=== PATIENT | female | born 2000 | race Hispanic/Latino ===

== ENCOUNTER 2024-12-16 19:12 | Inpatient (IN) | payer BC, SELFPAY ==
--- NOTE | 2024-12-02 17:15 | HP.PCM_ITS ---
History and Physical Date of Admission: 12/15/24 NAME: Anneliese Casanova SERVICE DATE: December 02, 2024 SERVICE TIME: 1440 ASSESSMENT & PLAN: 24 year old EGA:37w1d. Plan for delivery in <30 days. POST DELIVERY CONTRACEPTION: Discussed post-delivery contraception options. Patient received written information about post-delivery contraception options. SUBJECTIVE: CHIEF COMPLAINT: Scheduled Induction of labor for diabetes HISTORY OF THE PRESENT ILLNESS: The patient is a 24 year old female, , who is at 37w1d with an CRISTOBAL of 12/22/2024, by Ultrasound dating method. Patient has Good movement. Denies vaginal bleeding.. Patient is GBS Negative. Her has been complicated by the following issues: Active Non-Hospital Problems Diagnosis Date Noted ? Insulin controlled gestational diabetes mellitus (GDM) in third trimester 11/14/2024 Overview Note: November 14, 2024 - 10U NPH at bedtime prescribed by Dr. Molina. - Had nurse visit with development educator - Has growth ultrasound 11/21 - [place]: 88-95 - 1 hour PP:81-154 (only one abnormal) Peg Hess APRN.CNP Assessment & Plan Note: Orders: ? URINE OB DIP B/O ? ? Anemia complicating , third trimester 10/17/2024 Overview Note: November 17, 2024 11.1 at 35 weeks. Continue oral iron. Peg Hess APRN.CNP October 17, 2024 10.1 with 28 week labs. Oral iron initiated. Repeat in 4-6 weeks. Peg Hess APRN.CNP ? Heartburn during 08/07/2024 Overview Note: 08/07/24- Rx for Protonix 20 mg PO daily. Ellie Arnada APRN.CNM ? Atypical squamous cell changes of undetermined significance (ASCUS) on cervical cytology with positive high risk human papilloma virus (HPV) 07/11/2024 Overview Note: Colposcopy ordered. ? Language barrier 07/11/2024 Overview Note: 07/11/24 - Primary language is Welsh, but declines cleaning attendant today as she feels more comfortable with fiance helping her and does speak some Belarusian Peg Hess APRN.CNP ? Nausea and vomiting during prior to 22 weeks gestation 024 Overview Note: - Presented actively vomiting, after history of non-bloody N/V since yesterday at 5pm - Admits to minor generalized abdominal pain since yesterday - Currently already taking Unisom and B6 - Patient presented tachycardic to triage but remained stable for the remaining of her stay - Patient was given a liter of fluids and Reglan, with improvement and passed PO test - CBC, CMP, lipase, and urine were tested - The patient was discussed with Dr. Ng who agrees this patient to having an episode of routine nausea and vomiting related to her , based on labs and clinical presentation we have a low suspicion for pyelonephritis, pancreatitis, electrolyte abnormality, or cholecystitis - Based on the patients clinical presentation, labs, and improvement after fl uids and antinausea medication we felt comfortable for discharge. The patient was prescribed Reglan outpatient and the patient was in agreement with this management and disposition. ? Rubella non-immune status, antepartum 06/16/2024 ? Infection of urinary tract in in first trimester 05/14/2024 Overview Note: October 20, 2024 3rd trimester culture negative. Peg Hess, CLINICAL LABORATORY SERVICE TEACHER.HARVEST FIELD TICKETER ANESTHESIA COMPLICATIONS: None HISTORY REVIEW PAST MEDICAL HISTORY PAST MEDICAL HISTORY Diagnosis Date ? Anemia ? Atypical squamous cell changes of undetermined significance (ASCUS) on cer vical cytology with positive high risk human papilloma virus (HPV) 07/11/2024 ? Diet controlled gestational diabetes mellitus (GDM) in third trimester 11/14/2024 PAST SURGICAL HISTORY History reviewed. No pertinent surgical history. FAMILY HISTORY FAMILY HISTORY Problem Relation Age of Onset ? other (dengue fever) Mother ? No Known Problems Father ? No Known Problems Sister ? No Known Problems Sister ? No Known Problems Sister ? No Known Problems Brother ? No Known Problems Brother ? No Known Problems Brother ? No Known Problems Brother ? No Known Problems Brother ? No Known Problems Maternal Grandmother ? No Known Problems Maternal Grandfather ? No Known Problems Paternal Grandmother ? No Known Problems Paternal Grandfather SOCIAL HISTORY Social History Tobacco Use ? Smoking status: Never ? Smokeless tobacco: Never Vaping Use ? Vaping status: Never Used Substance Use Topics ? Alcohol use: Not Currently Comment: rarely ? Drug use: Never Obstetric History T0 L0 SAB0 IAB0 Ectopic0 Multiple0 Live Births0 Name of Baby 1: Not recorded Date: Not recorded GA: Not recorded Type: Not recorded Apgar1: Not recorded Apgar5: Not recorded Living: Not recorded ALLERGIES: ALLERGIES ALLERGIES No Known Allergies PRIOR TO ADMISSION MEDICATIONS: Prior to Admission medications as of 12/02/24 1427 Medication Sig Last Dose Taking insulin NPH subcutaneous pen Inject 10 Units subcutaneously daily at bedtime. Taking Yes Insulin [place], Disposable, (PEN NEEDLES) 31 gauge x 1/4 ndle 1 Pen Needle daily at bedtime. Taking Yes pantoprazole DR (PROTONIX) 20 mg tablet TAKE 1 TABLET BY MOUTH EVERY DAY Taking Yes blood sugar diagnostic test strip Use as directed to check glucose levels up to seven times daily. Taking Yes Lancets Use as directed to check glucose levels up to seven times daily. Taking Yes alcohol swabs (ALCOHOL PREP PADS) Use as directed to check glucose levels up to seven times daily. Taking Yes pyridoxine HCl, vitamin B6, (VITAMIN B-6 ORAL) Take by mouth. Taking Yes diphenhydramine HCl (UNISOM, DIPHENHYDRAMINE, ORAL) Take by mouth. Taking Yes metoclopramide HCl (REGLAN) 10 mg tablet Take 1 tablet by mouth three times a day. Taking Yes ferrous sulfate (IRON ORAL) Take by mouth. Taking Yes aspirin, enteric coated (ECOTRIN LOW STRENGTH) 81 mg EC tablet Take 1 tablet by mouth once daily. Taking Yes VIT 28-IRON FUM-FOLIC ORAL Take by mouth. Taking Yes No medication comments found. REVIEW OF SYSTEMS: PAIN ASSESSMENT: Negative for pain, history of chronic pain, or current treatment for a chronic pain condition. GENERAL: No weight loss, malaise or fevers., Negative for weakness, chills, night sweats, and weight loss. RESPIRATORY: Negative for cough, hemoptysis, wheezing, COPD, dyspnea or shortness of breath CARDIOVASCULAR: Negative for chest pain, leg swelling, hypertension, CHF or palpitations The remainder of the review of systems is negative. OBJECTIVE: SENSITIVE EXAM: Sensitive exam not performed. PHYSICAL EXAM: General: WD, WN HEENT: NC/AT, sclera white, pupils equal, no thyromegaly Lungs: clear, Heart: RR, S1, S2 Abdomen: soft, nontender, no masses Uterus: soft, NT Extremities: no edema DTRs: 2+ Pelvimetry: to be done at cervical exam next week LAST VITALS: BP 106/70 Wt 72.1 kg (159 lb) LMP 03/09/2024 (Approximate) BMI 31.05 kg/m? Heart Rate: 155 LABS Diagnostic tests reviewed for today's visit: Most recent labs and imaging results. Most recent labs Maternal Results (In Last 9 Months): Hemoglobin (g/dL) Date/Time Value 11/21/2024 1058 11.4 (L) 11/14/2024 1616 11.1 (L) 10/03/2024 1338 10.1 (L) Hematocrit (%) Date/Time Value 11/21/2024 1058 33.6 (L) 11/14/2024 1616 34.2 (L) 10/03/2024 1338 30.2 (L) Platelet Count (k/uL) Date/Time Value 11/21/2024 1058 284 11/14/2024 1616 282 10/03/2024 1338 277 ABO (no units) Date/Time Value 06/13/2024 1609 O Rh(D) (no units) Date/Time Value 06/13/2024 1609 Positive Group B Strep PCR (no units) Date/Time Value 11/21/2024 1050 Negative for Group B Streptococcus by PCR. HBsAg (no units) Date/Time Value 06/13/2024 1609 Negative Hep C Antibody IA (no units) Date/Time Value 06/13/2024 1609 Negative HIV 12 Combo (Ag/Ab) (no units) Date/Time Value 06/13/2024 1609 Nonreactive Neisseria gonorrhoeae RNA (no units) Date/Time Value 05/12/2024 1559 Negative for Neisseria gonorrhoeae by amplification Syphilis Treponemal Screen (no units) Date/Time Value 10/03/2024 1338 Nonreactive Glucose Scrn, Preg (mg/dL) Date/Time Value 10/03/2024 1338 160 (H) Delivery Plan: Induction Order completed and includes: Open Standing Orders None Induction Order Details None Written consent:Yes Assessment & Plan Assessment/Plan (1) Gestational diabetes requiring insulin: (2) High-risk in third trimester: (3) 39 weeks gestation of :
[2024-12-16 19:16] VITALS: BMI 31.5
[2024-12-16] MEDS: Lactated Ringers 1,000 ML 50 ML IV (19:40)
[2024-12-16 19:45] LABS: Absolute Lymphocyte Count 2.04 X10^3/uL (0.83-4.51); Absolute Neutrophil Count 7.2 X10^3/uL (2.0-7.7); Basophil# 0.04 X10^3/uL; Basophil% 0.4 % (0-1); Eosinophil# 0.07 X10^3/uL; Eosinophils% 0.7 % (0-5); Hematocrit 31.8 % (37-47); Hemoglobin 10.8 g/dL (12.0-15.0); Lymphocyte # 2.04 X10^3/ul (0.83-4.51); Lymphocyte % 20.1 % (19-41); Mean Corpuscular Hgb 31.4 pg (27.0-32.0); Mean Corpuscular Volume 92.4 fL (81-99); Mean Platelet Vol. 9.7 fl (6.2-12.0); Monocyte# 0.75 X10^3/uL; Monocyte% 7.4 % (0-10); NRBC Flagged by Analyzer 0 % (0-5); Neutrophil # 7.18 X10^3/uL (2.7-7.7); Neutrophil % 70.7 % (47-70); Platelet Count 263 K/mm3 (150-450); RBC Distribution Width CV 13.5 % (11.6-14.6); RBC Distribution Width SD 45.9 fl (35.1-43.9); Red Blood Count 3.44 M/mm3 (4.2-5.4); White Blood Count 10.2 K/mm3 (4.4-11.0)
[2024-12-16] MEDS: 0.9% Normal Saline Single 100 ML IV.SOLN. INTRA-UTER (19:58)
--- NOTE | 2024-12-16 20:00 | PCM.HP.OB ---
HPI - General General Date of Admission: 12/16/24 Date of Service: 12/16/24 HPI Narrative JAISON GRAY, is a 24 F who presents for induction. Maternal Data Information CRISTOBAL Calculator Estimated Delivery Date Method Current WG Current Estimate 12/22/24 Manual 39w 1d Vital Signs Vital Signs Vital Signs: Weight Weight: 161 lb 6.4 oz Body Mass Index (BMI) 31.5 Physical Exam Const alert and oriented x3 Resp normal respiratory effort GI soft to palpation, non-tender and non-distended Inspection: gravid external exam normal Narrative: cvx - 1.5/70/-2, intracervical cristobal placed Labs Labs Labs: Blood Type Pending Antibody Screen Pending Hct 31.8 % (37-47) L Hgb 10.8 g/dL (12.0-15.0) L Syphilis Total Ab Pending Assessment & Plan (1) Anemia affecting : QUALIFIERS: Trimester: third trimester Qualified Code(s): O99.013 - Anemia complicating , third trimester COMMENT: @ 39&1 (2) Gestational diabetes requiring insulin: (3) 39 weeks gestation of : PLAN: Plan Admit to L&D. Induction - intracervical cristobal placed. Will start pitocin. GDMA2 - check BS per protocol. EFW less than 4500g and patient with adequate pelvis. GBS negative. ROutine care.
[2024-12-16 20:04] VITALS: BP 116/72; PULSE 95
[2024-12-16 20:05] VITALS: PULSE 87; RESP 16; TEMP 37; O2SAT 96
[2024-12-16 20:36] LABS: Syphilis Antibodies Non-reactive
[2024-12-16 21:24] LABS: Bedside Glucose 95 mg/dL (74-106)
[2024-12-16 21:24] LABS: Bedside Glucose 92 mg/dL (74-106)
--- NOTE | 2024-12-16 21:40 | NURSING ---
Pt is from [place] and primary language is belarusian. RN offered an laundry worker. Pt declined as speaks Swedish and is able to translate. RN encouraged family and pt to request laundry worker as needed.
[2024-12-17] VITALS (66 sets, daily range): BP systolic 96–134; BP diastolic 52–86; PULSE 66–133; RESP 14–20; TEMP 36.4–37; O2SAT 97–100
[2024-12-17] MEDS: Oxytocin 15 Units/NS 250ml 15 UNITS/250 ML IV.SOLN 2 UNITS IV (00:10)
[2024-12-17 00:41] LABS: Bedside Glucose 93 mg/dL (74-106)
[2024-12-17 04:27] LABS: Bedside Glucose 94 mg/dL (74-106)
[2024-12-17] MEDS: Lactated Ringers 1,000 ML 999 ML IV (05:00)
[2024-12-17] MEDS: fentaNYL-bupivacaine (epidural) 100 ML BAG EPIDURAL (05:06)
[2024-12-17] MEDS: Ondansetron 4 MG/2 ML Vial IV (05:27)
[2024-12-17] MEDS: Lactated Ringers 1,000 ML 200 ML IV ×2 (06:37→11:40)
[2024-12-17 07:09] LABS: Bedside Glucose 86 mg/dL (74-106)
[2024-12-17 08:24] LABS: Bedside Glucose 84 mg/dL (74-106)
--- NOTE | 2024-12-17 09:01 | PCM.PN.OB ---
Subjective Subjective AROM for clear fluid. Objective Data Objective Data Vital Signs: Vital Signs Temp Pulse Resp BP Pulse Ox 97.9 F 90 16 114/69 98 12/17/24 07:19 12/17/24 07:19 12/17/24 07:19 12/17/24 07:19 12/17/24 07:08 Weight: 73.21 kg Body Mass Index (BMI) 31.5 Intake & Output: Intake and Output for Last 24 Hours 12/15/24 12/16/24 12/17/24 23:59 23:59 23:59 Intake Total 2028.64 / 202.64 Output Total 400 / 400 Balance 1628.64 / 1628.64 Lab / Micro Data 12/16/24 19:30 Labs: Laboratory Results - last 24 hr 12/16/24 19:30: WBC 10.2, RBC 3.44 L, Hgb 10.8 L, Hct 31.8 L, MCV 92.4, MCH 31.4, MCHC 34.0, RDW Std Deviation 45.9 H, RDW Coeff of Zoë 13.5, Plt Count 263, MPV 9.7, Immature Gran % (Auto) 0.700, Neut % (Auto) 70.7 H, Lymph % (Auto) 20.1, [place] % (Auto) 7.4, Eos % (Auto) 0.7, Baso % (Auto) 0.4, Absolute Neuts (auto) 7.2, Absolute Lymphs (auto) 2.04, Nucleated RBC % 0, Syphilis Total Ab Non-reactive, Blood Type O POSITIVE, Antibody Screen NEGATIVE 12/16/24 20:01: POC Glucose 92 12/16/24 21:01: POC Glucose 95 12/17/24 00:14: POC Glucose 93 12/17/24 04:06: POC Glucose 94 12/17/24 06:49: POC Glucose 86 12/17/24 08:05: POC Glucose 84 NST FHR Rate Baby A Baseline: 130 Variability:: Moderate Accelerations:: 15 x 15 Decelerations:: None NST Reactive:: Yes FHR Category:: Category I Uterine Activity:: q 2 Assessment & Plan (1) Gestational diabetes requiring insulin: (2) 39 weeks gestation of : (3) Anemia affecting : QUALIFIERS: Trimester: third trimester Qualified Code(s): O99.013 - Anemia complicating , third trimester COMMENT: @ 39&1
[2024-12-17 09:19] LABS: Bedside Glucose 89 mg/dL (74-106)
[2024-12-17 10:41] LABS: Bedside Glucose 78 mg/dL (74-106)
[2024-12-17 11:26] LABS: Bedside Glucose 81 mg/dL (74-106)
--- NOTE | 2024-12-17 13:35 | OB.VAGDELI_ITS ---
Assessment & Plan (1) (spontaneous vaginal delivery): Maternal Data Information CRISTOBAL Calculator Estimated Delivery Date Method Current WG Current Estimate 12/22/24 Manual 39w 2d Final CRISTOBAL: 12/22/24 Gestational age: 39+2 Vaginal Delivery Maternal Presentation Maternal Presentation: Medically Indicated Induction Maternal Presentation: Insulin controlled GDM Type of Induction: Pitocin and [place] Bul[place] Vaginal Delivery Information Procedure Performed: Spontaneous Vaginal Delivery Surgeon/Practitioner: Lauren Molina Date of Procedure: 12/17/24 Pre-Procedure Diagnosis: GDM A2 Post-Procedure Diagnosis: Type of anesthesia: Epidural Estimated Blood Loss: 150 cc Time of Delivery: 13:13 Findings Description of procedure: IOL for GDM A2. Patient progressed to complete at AROM at 6 cm with no increase in Pitocin. She pushed for approximated 1 hour. Delivered OA over an intact perineum Nuchal cord loose x 1. The anterior and posterior shoulders delivered easily with gentle traction. The cried upon delivery and was placed on the maternal abdomen. The cord was clamped and cut after 1 min. The placenta delivered with gentle traction. A second degree laceration was repaired with 2-0 vicryl. Presentation: Vertex and MELISSA Amniotic Membrane Rupture Type: Artificial Amniotic Fluid Description: Clear Placental Delivery Description: Spontaneous Placenta Disposition: [facility] Specimen collected: No Cord Vessel Description: 3 Vessels Cord Entanglement: Around neck x 1, loose Nuchal Cord Compression: Without compression A Gender: Female (1 minute): 7 (5 minute): 9 Delayed Cord Clamping: Yes Government Property Inspector tensile tester: No Post Vaginal Deli Medications given after delivery: IV Pitocin Episiotomy Description: None Laceration: Midline and 2nd degree Complication Complications: No
[2024-12-17] MEDS: Oxytocin 15 Units/NS 250ml 15 UNITS/250 ML IV.SOLN 83 UNITS IV (13:40)
[2024-12-17 14:20] LABS: Bedside Glucose 94 mg/dL (74-106)
[2024-12-17] MEDS: Acetaminophen 500 MG Tablet 1000 MG PO ×2 (14:21→22:47)
[2024-12-17] MEDS: Benzocaine/Lanolin/Aloe Vera 85 GM Spray 1 SPRAY TOPICAL (14:21)
[2024-12-17] MEDS: Ibuprofen 600 MG Tablet PO (16:58)
[2024-12-18 01:00] VITALS: BP 105/59; PULSE 83; RESP 16; TEMP 36.7; O2SAT 99
[2024-12-18 04:35] VITALS: BP 101/63; PULSE 80; RESP 16; TEMP 36.8; O2SAT 99
[2024-12-18 05:29] LABS: Bedside Glucose 90 mg/dL (74-106)
--- NOTE | 2024-12-18 06:24 | PCM.PN.OB ---
Subjective Subjective Doing well. Ambulating and voiding without difficulty. Mild lochia. Breast feeding. BG WNL Objective Data Objective Data Vital Signs: Vital Signs Temp Pulse Resp BP Pulse Ox O2 Del Method 98.3 F 80 16 101/63 99 Room Air 12/18/24 04:35 12/18/24 04:35 12/18/24 04:35 12/18/24 04:35 12/18/24 04:35 12/18/24 04:35 Oxygen Delivery Method Room Air Weight: 73.21 kg Body Mass Index (BMI) 31.5 Intake & Output: Intake and Output for Last 24 Hours 12/16/24 12/17/24 12/18/24 23:59 23:59 23:59 Intake Total 3278.64 / 3278.64 Output Total 2450 / 2450 Balance 828.64 / 828.64 Lab / Micro Data 12/16/24 19:30 Labs: Laboratory Results - last 24 hr 12/17/24 06:49: POC Glucose 86 12/17/24 08:05: POC Glucose 84 12/17/24 09:01: POC Glucose 89 12/17/24 10:10: POC Glucose 78 12/17/24 11:04: POC Glucose 81 12/17/24 14:00: POC Glucose 94 12/18/24 05:10: POC Glucose 90 ROS Constitutional Constitutional: Denies fatigue, fever(s) or malaise Eyes Eyes: Denies change in vision ENT HEENT: Denies dizziness or headache(s) Cardiovascular Cardiovascular: Denies chest pain, dyspnea or lightheadedness Respiratory/Chest Respiratory/Chest: Denies cough or dyspnea Gastrointestinal Gastrointestinal: Denies change in bowel habits Genitourinary Genitourinary: Denies burning urination or genital lesions Integumentary Integumentary: Denies rash Neurologic Neurologic: Denies confusion, dizziness, headache(s), numbness or weakness Physical Exam Const alert and no apparent distress Narrative: Fundus firm, below umbilicus. Assessment & Plan (1) (spontaneous vaginal delivery): PLAN: Plan Discharge home this afternoon
--- NOTE | 2024-12-18 06:25 | PCM.DC.SUM ---
Providers Date of Admission: 12/16/24 Date of Discharge: 12/18/24 Primary Care Physician: No Primary Care Phys Reason For Visit: VAGINAL Diagnosis Discharge Diagnosis (1) (spontaneous vaginal delivery): Status: Acute Code(s): O80 - Encounter for full-term uncomplicated delivery Plan Discharge home this afternoon Medications at Discharge Home Medications ferrous sulfate 325 mg (65 mg iron) tablet 325 mg PO DAILY 12/16/24 pantoprazole 20 mg tablet,delayed release 20 mg PO DAILY 12/16/24 vits 114-iron asparto gly 20 mg iron-folate no.1 1 mg tablet 1 tab PO 12/16/24 ibuprofen 600 mg tablet 600 mg PO Q6H PRN PRN Pain Score 1-10 #30 tabs 12/18/24 Hospital Course Operations None Procedures None Summary of Care Provided Minutes Spent on Discharge: 20 Hospital Course: IOL for GDMA2. without complication. Uncomplicated . Breast feeding Physical Exam Const alert and no apparent distress Narrative: Fundus firm, below umbilicus. Weight / BMI Weight Weight: 73.21 kg Body Mass Index (BMI) 31.5 ABG / Lab / Microbiology Data 12/16/24 19:30 Laboratory: Laboratory Results - last 24 hr 12/17/24 06:49: POC Glucose 86 12/17/24 08:05: POC Glucose 84 12/17/24 09:01: POC Glucose 89 12/17/24 10:10: POC Glucose 78 12/17/24 11:04: POC Glucose 81 12/17/24 14:00: POC Glucose 94 12/18/24 05:10: POC Glucose 90 D/C Instructions May resume sexual activity in: 6 weeks DC O2, CPAP, BIPAP Needs Home O2 Discharge instructions: No Please Follow Up With: Bree Becker MD When: Follow up with our office in 1-2 and 6 weeks or as needed. [phone] Meaningful Use Info Meaningful Use Meaningful Use Diagnoses (Choose all that apply): None applicable Ischemic Stroke Statin Dosing Therapy Reference: STATIN DOSE THERAPY REFERENCE: * Patients > 75 years receive moderate or high dose statin therapy. * Patients 75 years or YOUNGER should receive HIGH intensity statin dose unless contraindicated. You will be required to document reason for non-treatment if statin daily dose does not meet guidelines. HIGH DOSE STATIN THERAPY DAILY Atorvastatin > than or = to 40 mg Rosuvastatin > than or = to 20 mg Amlodipine + Atorvastatin > than or = to 2.5/40 mg Ezetimibe + Simvastatin 10/80 mg Simvastatin 80mg Discharge Plan Admission Admit Date/Time: 12/16/24 19:12 Primary Reason for Your Visit: induction Attending Provider: Ankush Salinas Primary Care Provider: Katarzyna Physician,No Primary Discharge Orders/Prescriptions Prescriptions: New ibuprofen 600 mg Tablet 600 mg PO Q6H PRN PRN (Reason: Pain Score 1-10) Qty: 30 1RF Continued 114-iron a-g-folate 1 20 mg iron- 1 mg tablet 1 tab PO pantoprazole 20 mg tablet,delayed release (DR/EC) 20 mg PO DAILY ferrous sulfate 325 mg (65 mg iron) tablet 325 mg PO DAILY Discontinued aspirin 81 mg tablet,delayed release (DR/EC) 81 mg PO DAILY pyridoxine (vitamin B6) [Vitamin B-6] 100 mg tablet 100 mg PO DAILY Humulin N NPH Insulin KwikPen 100 unit/mL (3 mL) insulin pen 10 unit subcut QHS Referrals / Follow Up: Care Physician,No Primary [Primary Care Provider] - Disposition Disposition (needs filled in before D/C Order can be placed): Home, Self Care
[2024-12-18 08:00] VITALS: BP 103/69; PULSE 92; RESP 16; TEMP 36.8; O2SAT 98
[2024-12-18 12:05] VITALS: BP 118/62; PULSE 72; RESP 16; TEMP 36.7; O2SAT 98
[2024-12-18 12:15] VITALS: PULSE 72
--- NOTE | 2024-12-18 14:01 | NURSING ---
All documentation by nursing unit clerk Chichi Giron reviewed by deputy director of nursing Lauren Erazo BSN, RN, CLC.
[2024-12-18] MEDS: Ibuprofen 600 MG Tablet PO (15:07)
== END 2024-12-18 17:00 | disposition home or self-care (01) | DRG 807 ==
PROVIDERS: Admitting Provider Obstetrics & Gynecology; Referring Provider Obstetrics & Gynecology; Visit Provider Obstetrics & Gynecology
DX: O24.424 Gestational diabetes mellitus in childbirth, insulin controlled (principal); Z37.0 Single live birth; O69.81X0 Labor and delivery complicated by cord around neck, without compression, not applicable or unspecified; O99.02 Anemia complicating childbirth; O70.1 Second degree perineal laceration during delivery; Z79.82 Long term (current) use of aspirin; Z79.899 Other long term (current) drug therapy; Z3A.39 39 weeks gestation of pregnancy
CPT/HCPCS: 59025; 59050; 82962; 85025; 86780; 86850; 86900; 86901; J2405